=== PATIENT | female | born 1995 | race Caucasian/White ===

== ENCOUNTER 2017-12-31 10:21 | Emergency (ER) | payer BC ==
[2017-12-31 12:24] VITALS: RESP 18
[2017-12-31 12:56] LABS: Appearance,Urine Cloudy (Clear); Bacteria,Urine Rare /hpf; Bilirubin,Urine Negative (Negative); Blood,Urine Moderate (Negative); Color,Urine Light Yellow; Glucose,Urine (UA) Negative (Negative); Ketones,Urine Negative (Negative); Leukocyte Esterase,Urine Large (Negative); Nitrite,Urine Negative (Negative); PH, Urine 5.5 (5.0-8.0); Protein,Urine 1+ (Negative); RBC,Urine 62 /hpf (0-5); Specific Gravity,Urine 1.007 (1.001-1.035); Urobilinogen,Urine <2.0 mg/dL (<2.0); WBC,Urine >182 /hpf (0-5)
--- NOTE | 2017-12-31 14:33 | ED ---
Female Urogenital HPI - General Chief complaint: Urogenital Stated complaint: abdominal pain x 2 days Time Seen by Provider: 12/31/17 14:15 Source: patient, RN notes reviewed Mode of arrival: ambulatory - History of Present Illness Initial comments: This is a 22-year-old female with a prior history of urinary tract infections and possibly history kidney stones who states she had the onset 2 days ago of dysuria. She states she has some sharp pain when she urinates some blood intermittently in her urine some lower abdominal pain and occasionally some left flank pain. She denies any nausea vomiting she has had fever chills or sweats. No trouble with urination. She denies her last May was 2 weeks ago. No other complaints she denies any ALLERGIES to medications. MD Complaint: dysuria, other Last Menstrual Period: 12/17/17 - Related Data Home Medications Medication Instructions Recorded Confirmed Ascorbic Acid [Vitamin C] 500 mg PO DAILY 12/07/15 12/07/15 Biotin 5 mg PO DAILY 12/07/15 12/07/15 Vitamin B Complex 1 cap PO DAILY 12/07/15 12/07/15 Previous Rx's Medication Instructions Recorded Ibuprofen [Motrin] 600 mg PO Q6HR PRN #20 tab 12/07/15 Cephalexin [Keflex] 500 mg PO Q6HR #40 cap 12/31/17 Phenazopyridine [Pyridium] 100 mg PO TID #15 tablet 12/31/17 Allergies Allergy/AdvReac Type Severity Reaction Status Date / Time No Known Allergies Allergy Verified 12/31/17 12:24 Review of Systems ROS Statement: Those systems with pertinent positive or pertinent negative responses have been documented in the HPI. ROS Other: All systems not noted in ROS Statement are negative. Past Medical History Past Medical History: No Reported History History of Any Multi-Drug Resistant Organisms: None Reported Past Surgical History: No Surgical Hx Reported Past Psychological History: No Psychological Hx Reported Smoking Status: Current every day smoker Past Alcohol Use History: Occasional Past Drug Use History: None Reported General Exam - General Exam Comments Initial Comments: This is a well-developed well-nourished awake alert oriented 3 female General appearance: alert, in no apparent distress Head exam: Present: atraumatic, normocephalic, normal inspection Eye exam: Present: normal appearance, PERRL, EOMI. Absent: scleral icterus, conjunctival injection, periorbital swelling ENT exam: Present: normal exam, mucous membranes moist Neck exam: Present: normal inspection, full ROM. Absent: tenderness, meningismus, lymphadenopathy Respiratory exam: Present: normal lung sounds bilaterally. Absent: respiratory distress, wheezes, rales, rhonchi, stridor Cardiovascular Exam: Present: regular rate, normal rhythm, normal heart sounds. Absent: systolic murmur, diastolic murmur, rubs, gallop, clicks GI/Abdominal exam: Present: soft, normal bowel sounds. Absent: distended, tenderness, guarding, rebound, rigid, bruit, pulsatile mass, hernia Rectal exam: Present: deferred Extremities exam: Present: normal inspection, full ROM, normal capillary refill. Absent: tenderness, pedal edema, joint swelling, calf tenderness Back exam: Present: normal inspection, CVA tenderness (L) (Very mild tenderness palpation in the left CVA region ) Neurological exam: Present: alert, oriented X3, CN II-XII intact Psychiatric exam: Present: normal affect, normal mood Skin exam: Present: warm, dry, intact, normal color. Absent: rash Course Vital Signs 12/31/17 12:21 Temperature 98.9 F Pulse Rate 76 Respiratory 18 Rate Blood Pressure 107/64 O2 Sat by Pulse 99 Oximetry Medical Decision Making - Medical Decision Making I did review the urine results are is evidence of urinary tract infection the patient will be discharged with appropriate antibiotics and pyridium. - Lab Data Lab Results 12/31/17 Range/Units 12:30 Urine Color Light Yellow Urine Appearance Cloudy H (Clear) Urine pH 5.5 (5.0-8.0) Ur Specific [place] 1.007 (1.001-1.035) Urine Protein 1+ H (Negative) Urine Glucose (UA) Negative (Negative) Urine Ketones Negative (Negative) Urine Blood Moderate H (Negative) Urine Nitrite Negative (Negative) Urine Bilirubin Negative (Negative) Urine Urobilinogen <2.0 (<2.0) mg/dL Ur Leukocyte Esterase Large H (Negative) Urine RBC 62 H (0-5) /hpf Urine WBC >182 H (0-5) /hpf Urine WBC Clumps Many H (None) /hpf Urine Bacteria Rare H (None) /hpf Disposition Clinical Impression: Urinary tract infection Disposition: HOME SELF-CARE Condition: Good Instructions: Urinary Tract Infection in Women (ED) Prescriptions: Cephalexin [Keflex] 500 mg PO Q6HR #40 cap Phenazopyridine [Pyridium] 100 mg PO TID #15 tablet Is patient prescribed a controlled substance at d/c from ED?: No Referrals: None,Stated [Primary Care Provider] - 1-2 days
[2017-12-31 14:41] VITALS: BP 106/61; PULSE 80; TEMP 98.3
== END 2017-12-31 14:42 | disposition home or self-care (01) ==
LOC: EC 10:21
DX: N39.0 Urinary tract infection, site not specified (principal); F17.200 Nicotine dependence, unspecified, uncomplicated
CPT/HCPCS: 81001; 99284

== ENCOUNTER 2024-12-03 22:32 | Observation (INO) | payer BC, OTHER ==
[2024-12-03 22:47] LABS: Glucose,Whole Blood 85 mg/dL (70-110)
[2024-12-03] MEDS: LACTATED RINGERS 1,000 ML IV ONE (23:05)
[2024-12-03] MEDS: ONDANSETRON 4 MG/2 ML VIAL IVP STA (23:05)
[2024-12-03 23:59] LABS: Appearance,Urine Clear (Clear); Bilirubin,Urine Negative (Negative); Blood,Urine Negative (Negative); Budding Yeast,Urine Rare /hpf; Color,Urine Yellow; Glucose,Urine (UA) Negative (Negative); Ketones,Urine 4+ (Negative); Leukocyte Esterase,Urine Negative (Negative); Mucus,Urine Many /hpf; Nitrite,Urine Negative (Negative); Protein,Urine 1+ (Negative); Specific Gravity,Urine 1.027 (1.001-1.035); Squamous Epithelial Cell,Urine 3 /hpf (0-4); Urobilinogen,Urine <2.0 mg/dL (<2.0); WBC,Urine 1 /hpf (0-5)
[2024-12-04] MEDS: FAMOTIDINE 20 MG/2 ML VIAL IV STA (00:11)
[2024-12-04] MEDS: METOCLOPRAMIDE 5 MG/ML 2 ML VIAL IVP STA (00:19)
[2024-12-04 01:22] LABS: Influenza A Not Detected (Not Detectd); Influenza B Not Detected (Not Detectd); RSV Not Detected (Not Detectd)
[2024-12-04] MEDS: ACETAMINOPHEN IV (For NPO) 1,000 MG in EMPTY BAG 1 BAG IVPB SCH (01:27)
[2024-12-04] MEDS: LACTATED RINGERS 1,000 ML IV ONE (01:28)
[2024-12-04 01:47] LABS: Basophils # (A) 0.06 10*3/uL (0.00-0.10); Basophils % (A) 0.3 %; HCT 31.6 % (37.2-46.3); HGB 10.9 g/dL (12.0-15.0); Lymphocytes # (A) 1.33 10*3/uL (0.90-5.00); Lymphocytes % (A) 5.8 %; MCHC 34.5 g/dL (32.0-37.0); MCV 92.7 fL (80.0-97.0); Monocytes # (A) 0.25 10*3/uL (0.20-1.00); Monocytes % (A) 1.1 %; Neutrophils # (A) 20.91 10*3/uL (1.80-7.70); Neutrophils % (A) 91.9 %; Platelet Count 252 10*3/uL (140-440); RBC 3.41 10*6/uL (4.10-5.20); RDW 12.1 % (11.5-14.5); WBC 22.75 10*3/uL (4.50-10.00)
[2024-12-04 02:02] LABS: ALT 20 U/L (4-34); AST 26 U/L (14-36); African American GFR (CKD) >90 (>60 ml/min/1.73 sqM); Amylase 96 U/L (30-110); Anion Gap 11 mmol/L; Blood Urea Nitrogen 10 mg/dL (7-17); Calcium 9.2 mg/dL (8.4-10.2); Carbon Dioxide 20 mmol/L (22-30); Chloride 104 mmol/L (98-107); Glucose 92 mg/dL (74-99); Lipase 75 U/L (23-300); Non-African American GFR(CKD) >90 (>60 ml/min/1.73 sqM); Potassium 3.5 mmol/L (3.5-5.1); Sodium 135 mmol/L (137-145)
[2024-12-04] MEDS: CAPSAICIN 0.025% CREAM 60 GM TUBE TOPICAL SCH (02:02)
[2024-12-04] MEDS: PROMETHAZINE SUPPOSITORY 25 MG SUPP RECTAL STA ×2 (07:31)
[2024-12-04] MEDS: METOCLOPRAMIDE 5 MG/ML 2 ML VIAL IVP SCH (07:33)
[2024-12-04] MEDS: FAMOTIDINE 20 MG/2 ML VIAL IV SCH (09:31)
[2024-12-04] MEDS: ONDANSETRON 4 MG/2 ML VIAL IVP PRN (11:02)
--- NOTE | 2024-12-04 11:25 | P.HPOB ---
History of Present Illness H&P Date: 12/04/24 Chief Complaint: IUP at 27 weeks, nausea vomiting This is a 29-year-old G1, P0 at 27+ weeks of , estimated due date of 03/03 based on 14-week ultrasound that presented to labor and delivery with complaints of continued nausea and vomiting. Patient states that she has been unable to keep anything down for the last few days. Patient does admit to marijuana use, 1 bowl per day. Patient states she began vomiting yesterday and was unable to smoke and vomiting has continued. Patient was admitted yesterday for IV hydration and antiemetics. UA with noted 4+ ketones. Good movement is appreciated. monitoring strips as tolerated per patient since admission. Patient denies contractions loss of fluid or vaginal bleeding. Patient has had late care presented at 19 weeks for care. Patient states she did have hyperemesis in the beginning of her . Review of Systems Constitutional: Reports fatigue, Denies chills, Denies fever Ears, nose, mouth and throat: Denies headache Cardiovascular: Denies leg edema Respiratory: Denies dyspnea Gastrointestinal: Reports constipation, Reports nausea, Reports vomiting, Denies diarrhea Genitourinary: Reports Past Medical History Past Medical History: No Reported History History of Any Multi-Drug Resistant Organisms: None Reported Past Surgical History: No Surgical Hx Reported Past Anesthesia/Blood Transfusion Reactions: No Reported Reaction Past Psychological History: Depression Smoking Status: Current every day smoker Past Alcohol Use History: None Reported Past Drug Use History: Marijuana Additional Drug Use History / Comment(s): daily marijuana smoker Medications and Allergies Home Medications Medication Instructions Recorded Confirmed Type Vit No.179/Iron/Folic 1 each PO DAILY 12/03/24 12/03/24 History [ Tablet] Allergies Allergy/AdvReac Type Severity Reaction Status Date / Time No Known Allergies Allergy Verified 12/03/24 22:50 Exam Osteopathic Statement: *. No significant issues noted on an osteopathic struc tural exam other than those noted in the History and Physical/Consult. Vital Signs Temp Pulse Resp BP Pulse Ox 12/03/24 22:49 98.0 F 107 H 20 133/86 100 Intake and Output 12/03/24 12/04/24 12/04/24 22:59 06:59 14:59 Other: # Voids 2 Weight 58.967 kg 58.967 kg In general this is a well-nourished well-developed female resting comfortably in bed. Breathing appears nonlabored. Patient does have an emesis bucket at the bedside. heart tones have been reassuring for gestational age no contractions have been appreciated cervical exam is deferred Results Result Diagrams: 12/04/24 01:38 12/04/24 01:38 Abnormal Lab Results - Last 24 Hours (Table) 12/03/24 12/04/24 12/04/24 Range/Units 23:40 01:38 01:38 WBC 22.75 H (4.50-10.00) 10*3/uL RBC 3.41 L (4.10-5.20) 10*6/uL Hgb 10.9 L (12.0-15.0) g/dL Hct 31.6 L (37.2-46.3) % Immature Gran # 0.20 H (0.00-0.04) 10*3/uL Neutrophils # 20.91 H (1.80-7.70) 10*3/uL Eosinophils # 0.00 L (0.04-0.35) 10*3/uL Sodium 135 L (137-145) mmol/L Carbon Dioxide 20 L (22-30) mmol/L Creatinine 0.42 L (0.52-1.04) mg/dL Urine Protein 1+ H (Negative) Urine Ketones 4+ H (Negative) Urine Mucus Many H (None) /hpf Urine Yeast (Budding) Rare H (None) /hpf Assessment and Plan (1) 27 weeks gestation of Current Visit: Yes Status: Acute Code(s): Z3A.27 - 27 WEEKS GESTATION OF SNOMED Code(s): 77604911 (2) Nausea and vomiting during Current Visit: Yes Status: Acute Code(s): O21.9 - VOMITING OF , UNSPECIFIED SNOMED Code(s): 6298277593 (3) Marijuana use Current Visit: Yes Status: Acute Code(s): F12.90 - CANNABIS USE, UNSPECIFIED, UNCOMPLICATED SNOMED Code(s): 608296509 (4) Cyclical vomiting with nausea Current Visit: Yes Status: Acute Code(s): R11.15 - CYCLICAL VOMITING SYNDROME UNRELATED TO MIGRAINE SNOMED Code(s): 23615634 Plan: at 27+ weeks with cyclic nausea and vomiting most likely secondary to chronic marijuana use with discontinuation. Patient is admitted to labor and delivery IV hydration with scheduled antiemetics Pepcid and Phenergan suppositories are ordered. monitoring as tolerated per patient. Discussed cyclic nausea vomiting associated with marijuana use. Questions are a nswered. Patient seems understanding of this diagnosis.
[2024-12-05] MEDS: CALCIUM CARBONATE 500 MG CHEWABLE PO PRN (00:19)
[2024-12-05] MEDS: PROMETHAZINE SUPPOSITORY 25 MG SUPP RECTAL STA (03:44)
--- NOTE | 2024-12-05 09:45 | P.PN ---
Progress Note - Text Progress Note Date: 12/05/24 29-year-old G1, P0 at 27-4/7 weeks presented yesterday with increased nausea and vomiting. Patient admitted to smoking a bowl of marijuana a day, vomiting increased the day she did not smoke. Patient has had slight improvement of her symptoms since IV fluids scheduled Zofran Reglan Phenergan suppositories, Pepcid IV. Vital signs stable General: ill-appearing female resting comfortably in bed, emesis basin at bedside heart tones: 135 reassuring for gestational age IUP at 27-4/7 weeks Cyclic vomiting secondary to marijuana use Continue IV antiemetics, scheduled IV Pepcid daily Advance diet to brat diet If no relief could consider a steroid taper.
[2024-12-06 05:26] LABS: Basophils # (A) 0.04 10*3/uL (0.00-0.10); Basophils % (A) 0.2 %; Eosinophils # (A) 0.03 10*3/uL (0.04-0.35); Eosinophils % (A) 0.2 %; HGB 9.5 g/dL (12.0-15.0); Lymphocytes # (A) 2.48 10*3/uL (0.90-5.00); Lymphocytes % (A) 12.6 %; MCH 31.3 pg (27.0-32.0); MCHC 33.9 g/dL (32.0-37.0); MCV 92.1 fL (80.0-97.0); Mean Platelet Volume 9.9 fL (9.5-12.2); Monocytes # (A) 1.24 10*3/uL (0.20-1.00); Monocytes % (A) 6.3 %; Neutrophils # (A) 15.64 10*3/uL (1.80-7.70); Neutrophils % (A) 79.7 %; Platelet Count 242 10*3/uL (140-440); RBC 3.04 10*6/uL (4.10-5.20); RDW 12.3 % (11.5-14.5); WBC 19.62 10*3/uL (4.50-10.00)
[2024-12-06 05:46] LABS: Appearance,Urine Clear (Clear); Bilirubin,Urine Negative (Negative); Blood,Urine Negative (Negative); Color,Urine Light Yellow; Creatinine,Urine Random 81.7 mg/dL; Glucose,Urine (UA) Negative (Negative); Ketones,Urine 4+ (Negative); Leukocyte Esterase,Urine Negative (Negative); Nitrite,Urine Negative (Negative); PH, Urine 6.5 (5.0-8.0); Protein,Urine Negative (Negative); Protein/Creatinine Ratio,Urine 0.428; Specific Gravity,Urine 1.022 (1.001-1.035); Urobilinogen,Urine <2.0 mg/dL (<2.0)
[2024-12-06 05:48] LABS: ALT 19 U/L (4-34); AST 23 U/L (14-36); African American GFR (CKD) >90 (>60 ml/min/1.73 sqM); Blood Urea Nitrogen 9 mg/dL (7-17); LDH 153 U/L (120-246); Non-African American GFR(CKD) >90 (>60 ml/min/1.73 sqM)
[2024-12-06 07:59] VITALS: BP 126/74; PULSE 93; RESP 16; TEMP 97.3
--- NOTE | 2024-12-06 08:38 | P.PN ---
Progress Note - Text Progress Note Date: 12/06/24 29-year-old G1, P0 at 27-5/7 weeks with PMH of marijuana use presenting with intractable nausea and vomiting, likely cyclic vomiting syndrome 1. Nausea and vomiting - IV zofran, reglan, pepcid, fluids with some relief - diet has been advanced from clear to BRAT - VSS 2. Viable IUP - FHTs reassuring for gestational age Dispo: Will add steroid taper. Continue inpatient management.
[2024-12-06] MEDS ORDERED: diphenhydrAMINE 50 MG/ML 1 ML VIAL IVP PRN (08:40)
[2024-12-06] MEDS: methylPREDNISolone SOD SUCCI 125 MG/2 ML VIAL IV SCH (09:16)
[2024-12-06] MEDS: FAMOTIDINE 20 MG/2 ML VIAL IV SCH (09:16)
--- NOTE | 2024-12-06 18:48 | P.DS ---
Providers Date of admission: 12/04/24 01:14 Expected date of discharge: 12/06/24 Attending physician: Yesenia Palafox Primary care physician: Stated None Hospital Course: 29-year-old G1, P0 at 27-5/7 weeks with PMH of marijuana use presenting with intractable nausea and vomiting, likely cyclic vomiting syndrome. She did have improvement in her symptoms with IV zofran, reglan, pepcid and ultimately steroids. She has been able to tolerate PO today and has improved significantly. She with go home with ODT zofran and PO steroid taper. She will follow up in the office. Patient Condition at Discharge: Stable Plan - Discharge Summary New Discharge Prescriptions: No Action Vit No.179/Iron/Folic [ Tablet] 1 each PO DAILY Discharge Medication List Vit No.179/Iron/Folic [ Tablet] 1 each PO DAILY 12/03/24 [History] Follow up Appointment(s)/Referral(s): Padma Huitron MD [STAFF PHYSICIAN] - 1 Week Discharge Disposition: HOME SELF-CARE
== END 2024-12-06 17:00 | disposition home or self-care (01) ==
LOC: FBPOP 22:32 → 4FBP 12-04 01:14
PROVIDERS: ADMIT Obstetrics & Gynecology; ATTEND Obstetrics & Gynecology Obstetrics
DX: O21.2 Late vomiting of pregnancy (principal); O99.342 Other mental disorders complicating pregnancy, second trimester; F32.A Depression, unspecified; O99.332 Smoking (tobacco) complicating pregnancy, second trimester; F17.200 Nicotine dependence, unspecified, uncomplicated; O99.322 Drug use complicating pregnancy, second trimester; F12.90 Cannabis use, unspecified, uncomplicated; Z3A.27 27 weeks gestation of pregnancy; Z11.52 Encounter for screening for COVID-19
CPT/HCPCS: 96376 ×3; 96361; 96374 ×2; 96375 ×2; 82570; 80048; 84156; 82150; 82565; 83615; 83690; 84450 ×2; 84460 ×2; 84520; 84550; 85025 ×2; 81003; 81001; 87636; G0463; G0378 ×4; J2765 ×3; J2405 ×3; J0131; J2919; J1308 ×3; 99214

== ENCOUNTER 2024-12-08 13:59 | Outpatient (CLI) | payer OTHER ==
[2024-12-08] MEDS: DEXTROSE 5%-LACTATED RINGERS 1,000 ML IV ONE (14:46)
--- NOTE | 2024-12-08 15:07 | XR ---
EXAMINATION TYPE: XR chest 1V portable DATE OF EXAM: 12/08/2024 3:00 PM COMPARISON: Chest radiographs from 12/07/2015 TECHNIQUE: XR chest 1V portable Portable AP radiograph of the chest. CLINICAL INDICATION:Female, 29 years old with history of SOB; FINDINGS: Lungs/Pleura: There is no evidence of pleural effusion, focal consolidation, or pneumothorax. Pulmonary vascularity: Unremarkable. Heart/mediastinum: Cardiomediastinal silhouette is unremarkable. Musculoskeletal: No acute osseous pathology. IMPRESSION: No acute cardiopulmonary disease/process. [facility], , 12/08/2024 3:05 PM
[2024-12-08 15:09] LABS: ALT 137 U/L (4-34); AST 84 U/L (14-36); African American GFR (CKD) >90 (>60 ml/min/1.73 sqM); Albumin 4.1 g/dL (3.5-5.0); Alkaline Phosphatase 106 U/L (38-126); Anion Gap 11 mmol/L; Blood Urea Nitrogen 10 mg/dL (7-17); Calcium 9.6 mg/dL (8.4-10.2); Carbon Dioxide 23 mmol/L (22-30); Chloride 101 mmol/L (98-107); Glucose 86 mg/dL (74-99); Non-African American GFR(CKD) >90 (>60 ml/min/1.73 sqM); Potassium 3.6 mmol/L (3.5-5.1); Sodium 135 mmol/L (137-145); Total Bilirubin 0.5 mg/dL (0.2-1.3); Total Protein 7.3 g/dL (6.3-8.2)
[2024-12-08 15:21] LABS: Basophils # (A) 0.04 10*3/uL (0.00-0.10); Basophils % (A) 0.2 %; Eosinophils # (A) 0.13 10*3/uL (0.04-0.35); Eosinophils % (A) 0.8 %; HCT 35.7 % (37.2-46.3); HGB 12.4 g/dL (12.0-15.0); Lymphocytes # (A) 2.24 10*3/uL (0.90-5.00); Lymphocytes % (A) 13.1 %; MCH 31.2 pg (27.0-32.0); MCHC 34.7 g/dL (32.0-37.0); MCV 89.9 fL (80.0-97.0); Mean Platelet Volume 10.5 fL (9.5-12.2); Monocytes # (A) 1.11 10*3/uL (0.20-1.00); Monocytes % (A) 6.5 %; Neutrophils % (A) 78.1 %; Platelet Count 305 10*3/uL (140-440); RBC 3.97 10*6/uL (4.10-5.20); RDW 12.1 % (11.5-14.5); WBC 17.05 10*3/uL (4.50-10.00)
[2024-12-08 16:26] LABS: T4, Free (Free Thyroxine) 1.58 ng/dL (0.78-2.19)
[2024-12-08] MEDS: LACTATED RINGERS 1,000 ML BAG IV STA (16:51)
[2024-12-08 17:17] LABS: Creatinine,Urine Random 57.1 mg/dL; Protein/Creatinine Ratio,Urine 0.228
[2024-12-08 17:18] LABS: Appearance,Urine Cloudy (Clear); Bacteria,Urine Occasional /hpf; Bilirubin,Urine Negative (Negative); Blood,Urine Negative (Negative); Budding Yeast,Urine Few /hpf; Color,Urine Light Yellow; Glucose,Urine (UA) 4+ (Negative); Ketones,Urine 1+ (Negative); Leukocyte Esterase,Urine Negative (Negative); Mucus,Urine Occasional /hpf; Nitrite,Urine Negative (Negative); PH, Urine 7.5 (5.0-8.0); Protein,Urine Negative (Negative); RBC,Urine 8 /hpf (0-5); Specific Gravity,Urine 1.019 (1.001-1.035); Squamous Epithelial Cell,Urine 7 /hpf (0-4); Urobilinogen,Urine <2.0 mg/dL (<2.0); WBC,Urine 4 /hpf (0-5)
[2024-12-08] MEDS: FAMOTIDINE 20 MG/2 ML VIAL IV STA (18:07)
[2024-12-08 19:25] VITALS: BP 132/88; PULSE 109; RESP 16; TEMP 98.1
[2024-12-09 02:15] LABS: Hepatitis A Antibody IgM Nonreactive (Nonreactive); Hepatitis B Core IgM Nonreactive (Nonreactive); Hepatitis B Surface Antigen Nonreactive (Nonreactive); Hepatitis C IgG Antibody Nonreactive (Nonreactive)
== END 2024-12-08 18:55 | disposition home or self-care (01) ==
LOC: FBPOP 13:59
PROVIDERS: ATTEND Obstetrics & Gynecology
DX: O21.9 Vomiting of pregnancy, unspecified (principal); O99.419 Diseases of the circulatory system complicating pregnancy, unspecified trimester; O99.519 Diseases of the respiratory system complicating pregnancy, unspecified trimester; O99.334 Smoking (tobacco) complicating childbirth; R00.2 Palpitations; R06.02 Shortness of breath; F17.200 Nicotine dependence, unspecified, uncomplicated; Z3A.00 Weeks of gestation of pregnancy not specified
CPT/HCPCS: 96361; 96374; 36415; 93005; 84439; 82570; 80053; 80074; 84156; 84443; 85025; 81001; 71045; J1308

== ENCOUNTER 2025-02-22 18:21 | Inpatient (IN) | payer OTHER ==
[2025-02-22] MEDS: LACTATED RINGERS 1,000 ML IV SCH (20:01)
[2025-02-22 20:11] LABS: Basophils # (A) 0.07 10*3/uL (0.00-0.10); Basophils % (A) 0.3 %; Eosinophils # (A) 0.01 10*3/uL (0.04-0.35); Eosinophils % (A) 0.0 %; HCT 35.0 % (37.2-46.3); HGB 12.2 g/dL (12.0-15.0); Lymphocytes # (A) 1.69 10*3/uL (0.90-5.00); Lymphocytes % (A) 6.5 %; MCH 31.9 pg (27.0-32.0); MCHC 34.9 g/dL (32.0-37.0); MCV 91.4 fL (80.0-97.0); Monocytes # (A) 0.82 10*3/uL (0.20-1.00); Monocytes % (A) 3.2 %; Neutrophils # (A) 23.11 10*3/uL (1.80-7.70); Neutrophils % (A) 88.8 %; Platelet Count 269 10*3/uL (140-440); RBC 3.83 10*6/uL (4.10-5.20); RDW 12.9 % (11.5-14.5); WBC 26.00 10*3/uL (4.50-10.00)
[2025-02-22 20:14] LABS: Bilirubin,Urine Negative (Negative); Blood,Urine Negative (Negative); Color,Urine Light Yellow; Glucose,Urine (UA) Negative (Negative); Ketones,Urine Negative (Negative); Leukocyte Esterase,Urine Negative (Negative); Nitrite,Urine Negative (Negative); PH, Urine 5.5 (5.0-8.0); Protein,Urine Negative (Negative); Specific Gravity,Urine 1.021 (1.001-1.035); Urobilinogen,Urine <2.0 mg/dL (<2.0)
[2025-02-22] MEDS: ONDANSETRON 4 MG/2 ML VIAL IVP PRN (20:19)
[2025-02-22] MEDS ORDERED: BUTORPHANOL 1 MG/ML 1 ML VIAL IV PRN (20:30)
--- NOTE | 2025-02-22 20:30 | P.HPOB ---
History of Present Illness H&P Date: 02/22/25 Chief Complaint: 38+ weeks, probable early labor, gestational hypertension The patient is a 29-year-old 1 para 0 admitted at 38+ weeks as established by 14-week ultrasound. She is admitted with cervical dilation of 4 cm and regular contractions. She has had significant problems during the with cyclic nausea and vomiting, possibly related to marijuana use. She additionally has had the diagnosis of IUGR during the but most recent growth ultrasound showed adequate interval growth at above the 10th percentile. testing has been reassuring. On labor and delivery, all signs are reassuring with a category 1 heart rate tracing but occasional minimal variability consistent with category 2 heart tones. She does continue to have regular contractions but has not yet made documented cervical change. She is admitted for observation for both blood pressure and possible early labor. Group B strep status is negative. Obstetrical history: 1 para 0 with current statistics listed in history of present illness. EDC of 03/03/2025 was established by 14-week ultrasound. Laboratory workup demonstrates a blood type of A+ with a negative antibody screen. Rubella status is immune. The remainder of the laboratory workup was within normal limits. 1 hour Glucola was normal and group B strep status is negative. Gynecologic history: Unremarkable with no history of any infections to include STDs. Review of Systems Review of systems is confined to history of present illness. Past Medical History Past Medical History: No Reported History History of Any Multi-Drug Resistant Organisms: None Reported Past Surgical History: No Surgical Hx Reported Past Anesthesia/Blood Transfusion Reactions: No Reported Reaction Smoking Status: Never smoker Medications and Allergies Home Medications Medication Instructions Recorded Confirmed Type Vit No.179/Iron/Folic 1 each PO DAILY 12/03/24 02/22/25 History [ Tablet] Ondansetron [Zofran] 4 mg PO DIRECTED 12/08/24 02/22/25 History Allergies Allergy/AdvReac Type Severity Reaction Status Date / Time No Known Allergies Allergy Verified 02/22/25 19:33 Exam Intake and Output 02/22/25 02/22/25 02/22/25 06:59 14:59 22:59 Other: Weight 65.771 kg In general, this is a well-developed, well-nourished white female in no acute distress though she is currently having significant nausea and vomiting. Her heart has a regular rhythm and rate without murmur. Her lungs are clear to auscultation bilaterally in all marquis. Her abdomen is gravid, nondistended, has normal active bowel sounds, soft, nontender, and without any palpable masses aside from uterine fundus. Her extremities are without any cyanosis, clubbing, or edema and are nontender to palpation bilaterally. Digital cervical examination demonstrates her cervix to be 5 cm dilated, 90% effaced, with the vertex and presentation at -2 station. This does represent a cervical change. Results Result Diagrams: 02/22/25 19:50 Abnormal Lab Results - Last 24 Hours (Table) 02/22/25 Range/Units 19:50 WBC 26.00 H (4.50-10.00) 10*3/uL RBC 3.83 L (4.10-5.20) 10*6/uL Hct 35.0 L (37.2-46.3) % Immature Gran # 0.30 H (0.00-0.04) 10*3/uL Neutrophils # 23.11 H (1.80-7.70) 10*3/uL Eosinophils # 0.01 L (0.04-0.35) 10*3/uL Assessment and Plan (1) Gestational hypertension Current Visit: Yes Status: Acute Code(s): O13.9 - GESTATIONAL HTN W/O SIGNIFICANT PROTEINURIA, UNSP TRIMESTER SNOMED Code(s): 93657333 (2) Active labor at term Current Visit: Yes Status: Acute Code(s): NPN4651 - SNOMED Code(s): 94063267 Plan: The patient has been admitted for probable early labor as well as some mildly elevated blood pressures in triage though this may be influenced by nausea and vomiting. She now has been documented to have cervical change. She will have close maternal and surveillance and expectant management will be practiced. She is a good candidate for either IV or epidural analgesia and has requested possible nitrous inhaled analgesia. At this time, we will allow her to labor on her own without intervention. No intervention is necessary for blood pressures at this time either. Laboratory workup for preeclampsia is pending, but preliminary results appear to be negative.
[2025-02-22 20:32] LABS: ALT 22 U/L (4-34); AST 31 U/L (14-36); African American GFR (CKD) >90 (>60 ml/min/1.73 sqM); Blood Urea Nitrogen 12 mg/dL (7-17); LDH 230 U/L (120-246); Non-African American GFR(CKD) >90 (>60 ml/min/1.73 sqM); Uric Acid 5.4 mg/dL (3.7-7.4)
[2025-02-22 20:36] LABS: Protein/Creatinine Ratio,Urine 0.087
[2025-02-22] MEDS ORDERED: TERBUTALINE 1 MG/ML VIAL SQ PRN (21:09)
[2025-02-22] MEDS ORDERED: CARBOPROST TROMETHAMINE 250 MCG/ML 1 ML AMP IM PRN (21:09)
[2025-02-22] MEDS ORDERED: TRANEXAMIC 1,000 MG/100ML-NACL 1,000 MG in EMPTY BAG 1 BAG IV PRN (21:09)
[2025-02-22] MEDS ORDERED: OXYTOCIN 10 UNIT/ML 1 ML VIAL IM PRN (21:09)
[2025-02-22] MEDS ORDERED: METHYLERGONOVINE 0.2 MG/ML 1 ML AMP IM PRN (21:09)
[2025-02-22] MEDS ORDERED: LIDOCAINE 0.5% (PF) 5 MG/ML (50 ML SDV) SQ PRN (21:09)
[2025-02-23] MEDS: OXYTOCIN 30 UNITS/500 ML NS 30 UNIT in SALINE 1 500ML.BAG IV SCH (07:26)
--- NOTE | 2025-02-23 07:37 | P.PROBDLV ---
Vaginal Delivery Note - . Vaginal Delivery Note: The patient is a 29-year-old 1 para 0 admitted at 38-6/7 weeks by good dating parameters. She is admitted in probable early labor with mildly elevated blood pressures and moderate nausea and vomiting. Her has been complicated by some fairly significant nausea and vomiting throughout. On labor delivery, all signs are reassuring with a category 1 heart rate tracing though there are intermittent segments of the heart monitor strip that show minimal variability without decelerations. On labor and delivery, she did continue to make cervical change to make the diagnosis of labor. She labored consistently through the night and was found to be complete this morning at approximately 615. She then pushed for approximately 1 hour to a normal spontaneous vaginal delivery of a viable 6 pound 12 ounce baby boy with Apgars of 9 at 1 minute and 9 at 5 minutes delivered in the direct occiput anterior position. The placenta was delivered spontaneously, intact, and grossly normal with a grossly normal, centrally inserted three-vessel cord. There were no lacerations of the perineum, vagina, or cervix. Estimated blood loss for the case was approximately 100 mL. There were no complications. Both mother and infant are resting comfortably in recovery.
[2025-02-23] MEDS ORDERED: HYDROCORTISONE 2.5% RECTAL CREAM 30 GM TUBE RECTAL PRN (08:16)
[2025-02-23] MEDS ORDERED: diphenhydrAMINE 25 MG CAP PO PRN (08:16)
[2025-02-23] MEDS ORDERED: diphenhydrAMINE 50 MG/ML 1 ML VIAL IVP PRN ×2 (08:16)
[2025-02-23] MEDS ORDERED: LANOLIN CREAM 1 GM TUBE TOPICAL PRN (08:16)
[2025-02-23] MEDS ORDERED: ZOLPIDEM 5 MG TAB PO PRN (08:16)
[2025-02-23] MEDS ORDERED: BENZOCAINE/MENTHOL SPRAY 1 GM/SPRAY AEROSOL TOPICAL PRN (08:16)
[2025-02-23] MEDS ORDERED: SIMETHICONE 80 MG CHEWABLE PO PRN (08:16)
[2025-02-23] MEDS: LACTATED RINGERS 1,000 ML IV SCH (08:24)
[2025-02-23] MEDS: IBUPROFEN 800 MG TAB PO SCH (08:32)
[2025-02-23 11:48] VITALS: RESP 16
[2025-02-23] MEDS: ACETAMINOPHEN TAB 500 MG TAB PO SCH (15:48)
[2025-02-23] MEDS: SENNOSIDES-DOCUSATE SODIUM 1 EACH TAB PO SCH (20:10)
[2025-02-24 07:24] LABS: HCT 30.6 % (37.2-46.3); HGB 10.6 g/dL (12.0-15.0); MCH 32.1 pg (27.0-32.0); MCHC 34.6 g/dL (32.0-37.0); MCV 92.7 fL (80.0-97.0); Platelet Count 251 10*3/uL (140-440); RBC 3.30 10*6/uL (4.10-5.20); RDW 13.4 % (11.5-14.5); WBC 25.97 10*3/uL (4.50-10.00)
--- NOTE | 2025-02-24 08:38 | P.DS ---
Providers Date of admission: 02/22/25 19:31 Expected date of discharge: 02/24/25 Attending physician: Padma Huitron MD Primary care physician: Stated None Hospital Course: Ms. Sanabria is a 29 year old now PPD#1 s/p . The patient is doing well this morning and had no acute events overnight. She has no complaints this morning. She reports minimal lochia, passing flatus, voiding without difficulty, ambulating, and eating/drinking without nausea or vomiting. doing well at bedside, s/p circumcision. She denies chest pain, shortness of breathing, fevers, or chills overnight. She denies pain or swelling in the legs. restrictions are reviewed with the patient including pelvic rest for 6 weeks. The patient is encouraged to call the office if she experiences any heavy bleeding, foul-smelling discharge, breast complaints, or any if she has any other concerns. She will follow up in the office in 6 weeks for exam. All questions are answered. Patient Condition at Discharge: Good Plan - Discharge Summary New Discharge Prescriptions: New Ferrous Sulfate [Iron (65 MG Elemental)] 325 mg PO DAILY #30 tab No Action Vit No.179/Iron/Folic [ Tablet] 1 each PO DAILY Ondansetron [Zofran] 4 mg PO DIRECTED Discharge Medication List Vit No.179/Iron/Folic [ Tablet] 1 each PO DAILY 12/03/24 [History] Ondansetron [Zofran] 4 mg PO DIRECTED 12/08/24 [History] Ferrous Sulfate [Iron (65 MG Elemental)] 325 mg PO DAILY #30 tab 02/24/25 [Rx] Follow up Appointment(s)/Referral(s): Padma Huitron MD [STAFF PHYSICIAN] - 04/06/25 1:15 pm Activity/Diet/Wound Care/Special Instructions: Instructions 1. Do not begin any exercise program for 3 weeks. 2. Do not resume sexual relations for 6 weeks or longer if uncomfortable. 3. You may take tub baths or showers at any time. 4. You may use tampons if desired after 6 weeks. 5. Keep any areas repaired with stitches clean and dry. 6. If you are not nursing, wear a good fitting, supportive bra during the day and limit fluid intake for at least 1 week to prevent breast engorgement. 7. Call the office, , within the next week to make appointment for your 6 week checkup if it has not already been made. 8. Report any of the following occurrences to the doctor promptly: a. Heavy, excessive bleeding b. Chills, fever c. Burning or frequency of urination d. Pain or redness and breasts if nursing e. Increasing pain or swelling of vulva (stitches). In addition to the above instructions, the following additional should be followed: 1. No heavy lifting or straining (exercising) until after 6 week checkup. 2. Keep abdominal incision clean and dry: You may wear a dressing if more comfortable. 3. Make office appointment for 2 weeks after delivery date. Discharge Disposition: HOME SELF-CARE
[2025-02-24 10:51] LABS: Eosinophils # (M) 0.26 k/uL (0-0.7); Lymphocytes # (M) 4.41 k/uL (1.0-4.8); Monocytes # (M) 0.78 k/uL (0-1.0); Neutrophils # (M) 20.52 k/uL (1.3-7.7); Neutrophils % (M) 79 %; Total Cells Counted 100
[2025-02-24 10:52] LABS: RBC Morphology Normal
--- NOTE | 2025-02-25 09:51 | P.PN ---
Progress Note - Text Progress Note Date: 02/25/25 29 year old now PPD#2 s/p . Was discharged yesterday but stayed overnight to continue working on latch and . Infant nursing well now with nipple shield. Patient stable, no complaints, no events overnight. Going home this AM.
[2025-02-25 10:47] VITALS: BP 110/70; PULSE 79; TEMP 98.2
== END 2025-02-25 14:00 | disposition home or self-care (01) | DRG 560 ==
LOC: FBPOP 18:21 → 4FBP 19:31
PROVIDERS: ADMIT Obstetrics & Gynecology; ATTEND Obstetrics & Gynecology
PROC: 10E0XZZ Delivery of Products of Conception, External Approach (ICD-10-PCS; principal; 2025-02-23)
DX: O13.4 Gestational [pregnancy-induced] hypertension without significant proteinuria, complicating childbirth (principal); Z37.0 Single live birth; Z3A.38 38 weeks gestation of pregnancy; R11.2 Nausea with vomiting, unspecified
CPT/HCPCS: 59025; 81003; 82565; 82570; 83615; 84156; 84450; 84460; 84520; 84550; 85025; 86850; 86900; 86901; 99213